=== PATIENT | male | born 1950 | race Caucasian/White ===

== ENCOUNTER 2016-06-17 04:52 | Emergency (ER) | payer OTHER, MEDICARE ==
[~2016-06-17] VITALS: Ht 175.3 cm; Wt 88.5 kg
--- NOTE | 2016-06-17 05:12 | ED DYSPNEA/ASTHMA COMPLAINT ---
History of Present Illness General Chief Complaint: General Adult Stated Complaint: WHEEZING, CHEST CONGESTION Source: patient, old records Exam Limitations: no limitations Vital Signs & Intake/Output Vital Signs & Intake/Output Vital Signs Date Time Temp Pulse Resp B/P B/P Pulse O2 O2 Flow FiO2 Mean Ox Delivery Rate 06/17 0501 97.4 76 18 146/93 97 Room Air Allergies Coded Allergies: No Known Allergies (12/27/15) Triage Note: PT STATES THAT HE HAD A SORE THROAT X1 WEEK WHICH HAS CLEARED UP NOW. PT CURRENTLY COMPLAINS OF "HEAVY CONGESTION" THAT HE HAS TROUBLE CLEARING. PT STATES THAT WHEN HE IS ACTIVELY MOVING THE CONGESTION CLEARS UP BUT ONCE HE SITS HE BECOMES CONGESTED AGAIN. PT DENIES SOB AND LOSS OF APPETITE. PT REPORTS HX OF BRONCHIAL INFECTIONS. Triage Nurses Notes Reviewed? yes HPI: Patient presents with worsening cough congestion and wheezing. The symptoms originally started approximately one half weeks ago when he had a "head cold." Patient denies any fevers or chills. There is no sinus congestion. Patient states that symptomatically started to feel better but the cough just never went away. Patient states that over the past 2 days he has been scratching wheezing. There is no dyspnea on exertion or orthopnea. Patient states that when he is resting he occasionally gets some chest tightness but it was up and moving around the tightness resolves. He describes it more of a grabbing sensation when he is sitting and he seems to be wheezing more. Past History Travel History Traveled to [place] past 21 day No Medical History Any Pertinent Medical History? see below for history Neurological: NONE EENT: NONE Cardiovascular: HIGH CHOL Respiratory: NONE Gastrointestinal: NONE Hepatic: NONE Renal: NONE Musculoskeletal: arthritis Psychiatric: NONE Endocrine: NONE Surgical History Surgical History: HIP SURGERY Psychosocial History What is your primary language Eritrean Tobacco Use: Never used ETOH Use: denies use Illicit Drug Use: denies illicit drug use Family History Family History, If Any: FATHER (triple bypass in 70s). Hx Contributory? No Review of Systems Review of Systems Constitutional: Reports: no symptoms. EENTM: Reports: see HPI. Respiratory: Reports: see HPI, cough, wheezing. Cardiovascular: Reports: see HPI, chest pain. GI: Reports: no symptoms. Genitourinary: Reports: no symptoms. Musculoskeletal: Reports: no symptoms. Skin: Reports: no symptoms. Neurological/Psychological: Reports: no symptoms. Hematologic/Endocrine: Reports: no symptoms. Immunologic/Allergic: Reports: no symptoms. All Other Systems: Reviewed and Negative Physical Exam Physical Exam General Appearance: well developed/nourished, alert, awake, mild distress Head: atraumatic, normal appearance Eyes: Bilateral: PERRL, EOMI. Ears, Nose, Throat: normal pharynx, normal ENT inspection, hearing grossly normal Neck: normal inspection, supple, full range of motion Respiratory: rhonchi, wheezing, respiratory distress Cardiovascular: regular rate/rhythm, normal peripheral pulses Gastrointestinal: normal bowel sounds, soft, non-tender, no organomegaly Extremities: normal inspection, normal capillary refill, normal range of motion, no edema Neurologic/Psych: no motor/sensory deficits, awake, alert, oriented x 3, normal gait, normal mood/affect Skin: intact, normal color, warm/dry Lymphatic: no anterior cervical maximo Core Measures ACS in differential dx? Yes ASA ordered for poss ACS? No-ACS ruled out Severe Sepsis Present: No Septic Shock Present: No Progress Differential Diagnosis: asthma, AMI, bronchitis, COPD, pneumonia, pneumothorax Plan of Care: Orders Procedure Date/time Status EKG 06/17 525 Active Current Medications Sig/Mali Start time Last Medication Dose Stop Time Status Admin Prednisone 60 MG ONCE ONE 06/17 599 UNVr 06/17 600 Diagnostic Imaging: Viewed by Me: Radiology Read. Discussed w/RAD: Radiology Read. CXR Impression: PATIENT: SAM AUGUSTIN PRESENT AGE: 66 PATIENT ACCOUNT NO: [id number] : 48 LOCATION: [facility] ORDERING PHYSICIAN: ABNER JIMENEZ MD SERVICE DATE: 06/17/16 EXAM TYPE: RAD - XRY-CHEST XRAY, PA AND LATERAL EXAMINATION: XR CHEST CLINICAL INFORMATION: Cough and wheeze. COMPARISON: 12/27/2015 TECHNIQUE: 2 views of the chest were obtained. FINDINGS: The lungs are well expanded. There is no focal consolidation , edema, or effusion. No pneumothorax. The cardiomediastinal silhouette is unchanged, with a tortuous aorta. No acute osseous abnormality. IMPRESSION: No acute pulmonary findings. DICTATED BY: ISABEL CARTAGENA,ADELAIDA DATE/TIME DICTATED: 06/17/16536 [facility]HAMED DATE/TIME TRANSCRIBED:06/17/16536 CONFIDENTIAL, DO NOT COPY WITHOUT APPROPRIATE AUTHORIZATION. <Electronically signed in Other Vendor System> SIGNED BY: ISABEL CARTAGENA,ADELAIDA 06/17/16 0541 Initial ED EKG: NSR, no ST T wave changes Prior EKG: unchanged Comments: Patient feels much better after DuoNeb. His lungs are now clear to auscultation with good air entry. Departure Departure Disposition: HOME OR SELF CARE Condition: Stable Clinical Impression Primary Impression: Bronchitis Referrals: FLO CARTAGENA,FARRUKH Giles (PCP/Family) Additional Instructions: RETURN IF SYMPTOMS WORSEN OR FOR ANY CONCERNS Departure Forms: Customer Survey General Discharge Information Prescriptions: Current Visit Scripts Albuterol Sulfate (Proair Hfa) 2 PUF INH Q4-6 PRN PRN BRONCHITIS #1 INHAL Prednisone 1 TAB PO DAILY #30 TAB TAKE 4 TABS FOR 3 DAYS THEN TAKE 3 TABS FOR 3 DAYS THEN TAKE 2 TABS FOR 3 DAYS THEN TAKE 1 TAB FOR 3 DAYS Critical Care Note Critical Care Note Critical Care Time: non-applicable
--- NOTE | 2016-06-17 05:41 | RADIOLOGY REPORT ---
EXAMINATION: XR CHEST CLINICAL INFORMATION: Cough and wheeze. COMPARISON: 12/27/2015 TECHNIQUE: 2 views of the chest were obtained. FINDINGS: The lungs are well expanded. There is no focal consolidation, edema, or effusion. No pneumothorax. The cardiomediastinal silhouette is unchanged, with a tortuous aorta. No acute osseous abnormality. IMPRESSION: No acute pulmonary findings.
[2016-06-17] MEDS ORDERED: PROAIR HFA8.5 GM INH (05:49)
[2016-06-17] MEDS ORDERED: PREDNISONE10 M2 PO (05:49)
[2016-06-17 05:56] VITALS: BP 116/79
== END 2016-06-17 05:59 ==
LOC: ERH 04:52
DX: J40 Bronchitis, not specified as acute or chronic (principal); R07.89 Other chest pain
CPT/HCPCS: 1263; 93005; 93010